=== PATIENT | male | born 1950 | race Caucasian/White ===

== ENCOUNTER 2017-03-16 13:10 | Inpatient (IN) | payer OTHER ==
[~2017-03-16] VITALS: Ht 175.3 cm; Wt 60.1 kg
[~2017-03-16 13:10] MED LIST: ASPIR 8181 M1 PO; DILAUDID4 MG PO; HYDROCODON-ACE1 EAC7 PO; HYDROMORPHONE HC4 MG PO; INHALER; PROAIR HFA8.5 GM IH; TYLENOL REGULA325 MG PO
[2017-03-16 14:38] LABS: HEMATOCRIT 43.5 % (38.0-50.0); MCH 31.1 PG (29.0-34.0); MCHC 32.9 G/DL (30.0-36.0); MCV 94.6 FL (86-99); MEAN PLAT.VOLUME 11.1 uM^3 (9.0-12.4); PLATELET COUNT 197 K/uL (156-360); RBC DIS.WIDTH-CV 13.1 % (11.8-14.6); RBC DIS.WIDTH-SD 45.1 % (39-53); WHITE BLOOD COUNT 9.4 K/uL (4.1-10.2)
[2017-03-16 14:51] LABS: CHLORIDE 103 mEq/L (99-109); POTASSIUM 4.2 mEq/L (3.7-5.4); SODIUM 139 mEq/L (136-147)
[2017-03-16 14:53] LABS: GLUCOSE 81 mg/dL (70-99)
[2017-03-16 14:55] LABS: ANION GAP 10 MEQ/L (2-14)
[2017-03-16 14:57] LABS: GFR ESTIMATE (CALCULATED) > 59 mL/min/
[2017-03-16 14:58] LABS: UREA NITROGEN (BUN) 9 mg/dL (9-23)
[2017-03-16 15:00] LABS: TROP-I INTERPRETATION NEGATIVE; TROPONIN-I < 0.01 ng/mL (0.0-0.30)
[2017-03-16] MEDS ORDERED: DUONEB 2.5-0.5 M3 ML AEROSOL (17:47)
[2017-03-16 19:57] VITALS: BP 150/68
[2017-03-16 21:48] LABS: TROP-I INTERPRETATION NEGATIVE; TROPONIN-I < 0.01 ng/mL (0.0-0.30)
[2017-03-16 23:41] LABS: TOTAL BILIRUBIN 0.5 mg/dL (0.0-1.0)
[2017-03-16 23:42] LABS: ALKALINE PHOSPHATASE 84 IU/L (3-129)
[2017-03-16 23:45] VITALS: BP 120/61
[2017-03-16 23:45] LABS: DIRECT BILIRUBIN 0.2 mg/dL (0.0-0.3)
[2017-03-16 23:46] LABS: LIPASE 10 U/L (1.0-51.0)
[2017-03-17 03:27] LABS: HEMATOCRIT 44.1 % (38.0-50.0); MCH 30.6 PG (29.0-34.0); MCV 95.7 FL (86-99); MEAN PLAT.VOLUME 10.9 uM^3 (9.0-12.4); PLATELET COUNT 186 K/uL (156-360); RBC DIS.WIDTH-SD 45.9 % (39-53); RED BLOOD COUNT 4.61 M/uL (4.00-5.50); WHITE BLOOD COUNT 7.5 K/uL (4.1-10.2)
[2017-03-17 03:31] VITALS: BP 127/60
[2017-03-17 03:39] LABS: CHLORIDE 101 mEq/L (99-109); POTASSIUM 4.7 mEq/L (3.7-5.4); SODIUM 139 mEq/L (136-147)
[2017-03-17 03:42] LABS: ANION GAP 9 MEQ/L (2-14)
[2017-03-17 03:45] LABS: GFR ESTIMATE (CALCULATED) > 59 mL/min/
[2017-03-17 03:46] LABS: UREA NITROGEN (BUN) 13 mg/dL (9-23)
[2017-03-17 03:49] LABS: TROP-I INTERPRETATION NEGATIVE; TROPONIN-I < 0.01 ng/mL (0.0-0.30)
[2017-03-17 04:03] LABS: GLUCOSE 152 mg/dL (70-99)
[2017-03-17 05:02] LABS: HDL CHOLESTEROL 35 MG/DL (Desirable>=40); LDL CHOLESTEROL 113 mg/dL (Desirable<100); NON-HDL CHOLESTEROL 122 mg/dL (Desirable<160); TOTAL CHOLESTEROL 157 mg/dL (Desirable<200); TRIGLYCERIDES 47 MG/DL (Normal: <150)
[2017-03-17 07:43] VITALS: BP 138/63
[2017-03-17 11:57] VITALS: BP 126/65
[2017-03-17 15:51] VITALS: BP 126/63
[2017-03-17 19:35] VITALS: BP 153/70
[2017-03-17 23:40] VITALS: BP 133/71
[2017-03-18 04:12] VITALS: BP 140/73
[2017-03-18 08:17] VITALS: BP 147/71
[2017-03-18 10:54] VITALS: BP 124/61
[2017-03-18 15:37] VITALS: BP 140/68
[2017-03-18 19:42] VITALS: BP 129/67
[2017-03-18 23:51] VITALS: BP 135/70
[2017-03-19 03:56] VITALS: BP 145/78
[2017-03-19 07:41] VITALS: BP 147/79
[2017-03-19 12:04] VITALS: BP 129/72
[2017-03-19] MEDS ORDERED: NITROSTAT0.4 MG SL (14:15)
[2017-03-19] MEDS ORDERED: ADVAIR HFA120 INHALA IH (14:15)
[2017-03-19] MEDS ORDERED: ATORVASTATIN CA40 MG PO (14:15)
[2017-03-19] MEDS ORDERED: PREDNISONE10 MG PO (14:15)
[2017-03-19 16:31] VITALS: BP 127/70
[2017-03-19 20:03] VITALS: BP 139/65
[2017-03-19 23:47] VITALS: BP 154/75
[2017-03-20 03:54] VITALS: BP 151/72
[2017-03-20 07:54] VITALS: BP 154/82
[2017-03-20 12:05] VITALS: BP 146/74
[2017-03-20] MEDS ORDERED: ATORVASTATIN CA40 MG PO (12:10)
[2017-03-20] MEDS ORDERED: ADVAIR HFA120 INHALA IH (12:10)
[2017-03-20] MEDS ORDERED: PREDNISONE10 MG PO (12:10)
== END 2017-03-20 15:36 | disposition home or self-care (01) | DRG 190 ==
LOC: EME 13:10 → EDOF 17:53 → 5SOUTH 17:53
PROVIDERS: Emergency Medicine; Hospitalist
DX: J44.1 Chronic obstructive pulmonary disease with (acute) exacerbation (principal); J96.91 Respiratory failure, unspecified with hypoxia; I25.10 Atherosclerotic heart disease of native coronary artery without angina pectoris; J44.0 Chronic obstructive pulmonary disease with (acute) lower respiratory infection; J20.9 Acute bronchitis, unspecified; M19.071 Primary osteoarthritis, right ankle and foot; Z66 Do not resuscitate; Z51.5 Encounter for palliative care; F17.210 Nicotine dependence, cigarettes, uncomplicated; Z79.82 Long term (current) use of aspirin; Z82.49 Family history of ischemic heart disease and other diseases of the circulatory system
CPT/HCPCS: 71020; 71275; 80048; 80061; 80076; 83690; 84484; 85027; 85379; 93005; 93306; 94640; 94640 76; 94799; 99202; 99281; 99285; J1650; J2405; J2930; J7040